=== PATIENT | male | born 1965 | race Caucasian/White ===

== ENCOUNTER 2016-09-28 09:29 | Inpatient (IN) | payer MEDICAID ==
[2016-09-28] VITALS (8 sets, daily range): BP systolic 96–126; BP diastolic 60–76
[~2016-09-28] VITALS: Ht 172.7 cm; Wt 50.3 kg
--- NOTE | 2016-09-28 09:29 | NUR ---
Patient was BIBA and taken to bed 02 via gurney per EMS.
--- NOTE | 2016-09-28 09:30 | NUR ---
CLOTHING CUT OFF PT---COVERED WITH WARM GOWN AND BLAKET--
[2016-09-28] MEDS ORDERED: NACL 0.9% 2,000 ML IV SCH (09:35)
--- NOTE | 2016-09-28 09:49 | NUR ---
Dr. Stone evaluating patient at bedside.
--- NOTE | 2016-09-28 09:50 | NUR ---
SEAN GILES INITIATED--HIGH SETTING
[2016-09-28] MEDS ORDERED: SODIUM BICARBONATE 8.4% 50 MEQ/50 ML VIAL INJ ONE (09:55)
[2016-09-28] MEDS ORDERED: SODIUM BICARBONATE 8.4% PFS 50 MEQ/50 ML SYR IVP ONE (09:59)
--- NOTE | 2016-09-28 10:04 | NUR ---
LAB at bedside.
--- NOTE | 2016-09-28 10:16 | NUR ---
Patient going to CT via [facility].
[2016-09-28] MEDS ORDERED: LEVOFLOXACIN 500 MG/D5W PREMIX 100 ML IV ONE (10:40)
[2016-09-28] MEDS ORDERED: NACL 0.9% 500 ML IV ONE (10:40)
--- NOTE | 2016-09-28 10:52 | NUR ---
Patient back from CT via [facility].
--- NOTE | 2016-09-28 11:00 | NUR ---
PT OPENING EYE SPONTANEOUSLY, MOVING ALL EXTREMITIES, ATTEMPTED TO SAY NAME BUT REMAINS NON VERBAL --NODS YES WHEN ASKED TO CONFIRM HIS NAME "VANI". SEAN GILES REAPPLIED. WILL CONTINUE TO MONITOR AND OBSERVE FOR CHANGES
[2016-09-28] MEDS ORDERED: cefTRIAXone 1,000 MG VIAL ONE (11:11)
[2016-09-28] MEDS ORDERED: POTASSIUM CHL 40 MEQ/ D5-1/2NS 1,000 ML IV ONE (11:15)
[2016-09-28] MEDS ORDERED: CALCIUM CHLORIDE 10% 100 MG/ML SYR IVP ONE (11:15)
--- NOTE | 2016-09-28 11:37 | NUR ---
RT at bedside to repeat ABG.
[2016-09-28] MEDS ORDERED: NACL 0.9% 1,000 ML IV SCH ×2 (12:32→12:50)
[2016-09-28] MEDS ORDERED: ONDANSETRON 4 MG/2 ML VIAL IVP PRN (12:35)
[2016-09-28] MEDS ORDERED: ACETAMINOPHEN 325 MG TAB PO PRN (12:35)
[2016-09-28] MEDS ORDERED: SODIUM BICARBONATE 8.4% 100 MEQ in NACL 0.9% 1,000 ML IV SCH (12:35)
--- NOTE | 2016-09-28 12:45 | NUR ---
C-SPINE PRECAUTIONS CLEARED BY MD--REMOVED BACKBOARD AND C-COLLAR DC'D
--- NOTE | 2016-09-28 13:05 | NUR ---
ADMITTED 51 YEAR OLD MALE FROM ER WITH A DIAGNOSIS OF HYPOKALEMIA, SEVERE ANEMIA, DEHYDRATION. PT IS AWAKE AND DROWSY BUT ABLE TO FOLLOW SIMPLE COMMANDS AND ANSWER SIMPLE QUESTIONS. PT IS SR IN THE MONITOR, AUSCULTATED RHONCHI LUNG SOUNDS, ACTIVE BOWEL SOUNDS AUSCULTATED, PT HAS HURST CATHETER IN PLACE DRAINING BY GRAVITY WITH CLEAR YELLOW URINE NOTED, PT HAS MULTIPLE ABRASIONS AND BRUISES, AND OPEN WOUNDS ON RIGHT GROIN AND CHAZ RECTAL AREA, PT HAD SMALL SOFT BOWEL MOVEMENT NOTED, CLEANED AND KEPT DRY, PT IS ABLE TO MOVE ALL EXTREMITIES BUT WITH GENERALIZED WEAKNESS NOTED. ORIENTED PT IN THE ROOM, KEPT SEAN HUGGER IN PLACE, SAFETY/FALL PRECAUTION ENFORCED, CALL LIGHT WITHIN REACH, WILL CONTINUE TO MONITOR.
--- NOTE | 2016-09-28 13:05 | NUR ---
TAKEN TO ICU, REPORT GIVEN TO IVAN BACA----
--- NOTE | 2016-09-28 13:15 | NUR ---
BLOOD TRANSFUSION STARTED.
--- NOTE | 2016-09-28 13:18 | NUR ---
Pt transferred to ICU via [facility] , REPORT GIVEN TO IVAN BACA---
--- NOTE | 2016-09-28 15:15 | NUR ---
BLOOD TRANSFUSION STARTED. Addendum: 09/28/16 at 1522 by Deandre Morris RN WRONG TIME.
--- NOTE | 2016-09-28 15:22 | NUR ---
DR. CALIXTO IS IN THE NURSE'S STATION.
[2016-09-28] MEDS: NYSTATIN CRE 100 MU/GM 15 GM TUBE TP SCH ×2 (15:43→20:49)
--- NOTE | 2016-09-28 16:00 | NUR ---
2ND UNIT OF BLOOD TRANSFUSION STARTED.
--- NOTE | 2016-09-28 16:21 | NUR ---
DR. LOCKETT IS IN THE NURSE'S STATION. NEW ORDERS RECEIVED, WILL CARRY OUT NEW ORDER.
--- NOTE | 2016-09-28 16:22 | NUR ---
PER DR. LOCKETT, NO NEED TO REPORT TROPONIN, HE STATED THAT HE IS AWARE OF PT'S TROPONIN.
[2016-09-28] MEDS ORDERED: HYDROmorphone 1 MG/ML AMP IVP PRN (16:25)
[2016-09-28] MEDS ORDERED: LORazepam 2 MG/ML VIAL IVP SCH (16:25)
[2016-09-28] MEDS ORDERED: MAG SULF 2000 MG/WATER PREMIX 100 ML IV ONE (16:45)
--- NOTE | 2016-09-28 17:10 | NUR ---
DR. ARREDONDO, RESIDENT DOCTOR AT BEDSIDE, TALKING TO PT.
--- NOTE | 2016-09-28 18:30 | NUR ---
CENTRAL LINE INSERTION PROCEDURE DONE.
[2016-09-28] MEDS ORDERED: LORazepam 2 MG/ML VIAL IVP PRN (19:00)
--- NOTE | 2016-09-28 19:23 | NUR ---
ENDORSED REPORT TO PHUONG CAVANAUGH FOR CONTINUITY OF CARE. PT IS STABLE AT THIS TIME.
--- NOTE | 2016-09-28 19:47 | NUR ---
IN BED SEDATED PER REPORT, BASELINE AOX2 BR UP O2 2L NC, NO SOB, NORMAL RR ON 3RD UNIT OF 4 FOR TRANSFUSION OK TO USE CENTRAL LINE PER DAY RN, SPOKE TO DR ARNULFO HURST IN IVS OK GETTING MAG WELL LABS IN AM US ROUTINE PENDING
[2016-09-28] MEDS ORDERED: POTASSIUM CHL 20 MEQ/D5-1/2NS 1,000 ML IV SCH (19:50)
[2016-09-28] MEDS ORDERED: CLINDAMYCIN 600 MG/4 ML VIAL ONE ×2 (20:12)
[2016-09-28] MEDS: CLINDAMYCIN 600 MG in DEXTROSE 5% 50 ML IV SCH (20:13)
--- NOTE | 2016-09-28 20:38 | NUR ---
ABG RESULTS READ TO DR CARDONA (ORDERED BY ARNULFO)
[2016-09-28] MEDS ORDERED: POTASSIUM CHL 20 MEQ/ 1/2 NS 1,000 ML IV SCH (23:25)
[2016-09-28] MEDS ORDERED: THIAMINE 200 MG/2 ML VIAL IM SCH (23:25)
[2016-09-28] MEDS ORDERED: THIAMINE 200 MG/2 ML VIAL IV SCH (23:25)
[2016-09-29] VITALS (16 sets, daily range): BP systolic 121–150; BP diastolic 63–92
[2016-09-29] MEDS: NACL 0.45% IV SCH ×4 (00:30→17:22)
[2016-09-29] MEDS: THIAMINE IV SCH ×4 (00:30→17:22)
[2016-09-29] MEDS: POTASSIUM CHLORIDE IV SCH ×4 (00:30→17:22)
--- NOTE | 2016-09-29 00:43 | NUR ---
DR ARREDONDO CALLED IN TO ORDER ivf: 20 meq kcl thiamine 100mg 1/2 ns 1000 ml
[2016-09-29] MEDS: CLINDAMYCIN 600 MG in DEXTROSE 5% 50 ML IV SCH ×2 (04:15→12:47)
--- NOTE | 2016-09-29 04:43 | NUR ---
NO DISTRESS BATH GIVEN STILL SLEEPY, BUT SAYS HE KNOW WHERE HE IS CENTRAL LINE OK, 4 UNITS GIVEN LEFT IV 20G TAKEN OUT HURST IN VS WNL NO NEW SKIN BREAKDOWN
--- NOTE | 2016-09-29 07:10 | NUR ---
K 2.6 ENDORSED TO ONCOMING RN , TRIED TO CALL [phone], NO ANSWER
--- NOTE | 2016-09-29 07:14 | NUR ---
DR CHE CALLED KEEP NPO EXCEPT MEDS CONSENT FOR EGD
--- NOTE | 2016-09-29 07:15 | NUR ---
PT ASLEEP IN BED, EASILY AROUSABLE TO VERBAL AND TACTILE STIMULI. NO SIGNS OF ACUTE DISTRESS. WITH O2 AT 2L/MIN VIA NC. BREATHING EVENLY AND UNLABORED. SKIN IS WARM AND DRY. OFFLOAD TO BONY PROMINENCE. AFEBRILE, NO EPISODE OF ANY NAUSEA OR VOMITING. NOTED HURST CATHETER WITH 150CC OF CLEAR YELLOW URINE. KEPT ON NPO ORDERED. NO C/O PAIN OR DISCOMFORT. ALL NEEDS ANTICIPATED. SAFETY PRECAUTIONS MAINTAINED. CALL LIGHT WITHIN REACH.
[2016-09-29] MEDS ORDERED: POTASSIUM CHLORIDE 20% 40 MEQ/15 ML UDC PO SCH (08:00)
--- NOTE | 2016-09-29 08:00 | NUR ---
PT WITH GOOD BED MOBILITY, ABLE TO TURN WITH MINIMAL ASSIST. KEPT CLEAN AND DRY. CONTINUE TO MONITOR.
[2016-09-29] MEDS: LEVOFLOXACIN 500 MG/D5W PREMIX 100 ML IV SCH (08:05)
[2016-09-29] MEDS: NYSTATIN CRE 100 MU/GM 15 GM TUBE TP SCH ×2 (08:05→20:23)
--- NOTE | 2016-09-29 08:10 | NUR ---
RECEIVED ORDER FROM OBTAIN ABG DR. ARREDONDO. NOTED AND CARRIED OUT.
--- NOTE | 2016-09-29 08:21 | NUR ---
PATIENT HAS BEEN SCREENED AND CATEGORIZED HIGH NUTRITION RISK. PATIENT WILL BE SEEN WITHIN 1-2 DAYS OF ADMISSION. 09/29/16-09/30/[address]
[2016-09-29] MEDS ORDERED: POTASSIUM CHLORIDE 20% 40 MEQ/15 ML UDC GT SCH (08:58)
--- NOTE | 2016-09-29 09:12 | NUR ---
NEW MED AND LAB ORDERS RECEIVED FROM DR. ARREDONDO. NOTED AND CARRIED OUT.
--- NOTE | 2016-09-29 09:15 | NUR ---
WAS SEEN BY WOUND CARE NURSE. CONTINUE TO MONITOR.
[2016-09-29] MEDS ORDERED: NACL 0.9% 600 ML IV ONE (10:40)
[2016-09-29] MEDS ORDERED: POTASSIUM PHOSPHATE 15 MM in NACL 0.9% 250 ML IV SCH (11:00)
--- NOTE | 2016-09-29 11:00 | NUR ---
WOUND CARE EVALUATION NOTES: REASON FOR EVALUATION: MULTIPLE SCABS/WOUNDS COMPLETE SKIN ASSESSMENT DONE ON THIS 51 Y/O HOMELESS MALE PATIENT TO [facility], WITH INITIAL DIAGNOSIS OF HYPOKALEMIA, SEVERE ANEMIA AND DEHYDRATION. PAST HISTORY INCLUDE CHRONIC ALCOHOL USE AND BACK INJURY. LABS INCLUDE WBC 29.2, H/H 10.9/32.5, GLUCOSE 98, ALBUMIN 2.1, PT/INR 14.8/1.6 AND PTT 35.3. CURRENT MEDS INCLUDE FLUCONAZOLE, CLINDAMYCIN, ATIVAN AND NORCO. PATIENT IS AWAKE, ORIENTED TO PERSON AND PLACE, BUT NOT TO DATE AND TIME. ABLE TO FOLLOW SIMPLE COMMANDS. RIGHT IJ CENTRAL LINE PATENT AND INTACT. URINE AND BOWEL INCONTINENT. SKIN WARM TO TOUCH WNL, TOENAILS WNL, NO EDEMA, WITH HAIR GROWTH AND +2 BILATERAL PEDAL PULSES. ABLE TO TURN SELF WITH NO ASSISTANCE. INITIAL PLAN OF CARE AND PRESSURE PREVENTIVE MEASURES DISCUSSED, ABLE TO VERBALIZE UNDERSTANDING. INTEGUMENTARY: PERIAREA, PERIRECTAL - INCONTINENT ASSOCIATED DERMATITIS RIGHT SIDE OF FACE - ECCHYMOSIS - PURPLE ABDOMEN - ECCHYMOSIS - PURPLE LEFT ARM - ECCHYMOSIS - PURPLE RECOMMENDATIONS: -CLEANSE PERIRECTAL TO PERIAREA WITH MILD SOAP AND WATER, PAT DRY, APPLY ANTIFUNGAL OINT BIDWC AND PRN WITH SOILING. LEAVE OPEN TO AIR -TURN AND REPOSITION PATIENT Q2H -ASSESS AND MONITOR SKIN CONDITION DURING POSITION CHANGE, PLEASE PAY PARTICULAR ATTENTION TO SACRALCOCCYX, ELBOWS AND HEELS -OFFLOAD BILATERAL HEELS BY PLACING PILLOWS UNDER CALVES AT ALL TIMES, UNLESS OTHERWISE CONTRAINDICATED. -KEEP SKIN CLEAN AND DRY AT ALL TIMES. RECOMMENDATIONS DISCUSSED WITH PRIMARY RN AND RESIDENT PHYSICIAN, DR ARREDONDO AND DR CHARLES NO FOLLOW UP NEEDED AT THIS TIME. PLEASE CONTACT [facility] FOR ANY CONCERNS, QUESTIONS AND CHANGES IN WOUND CONDITION.
--- NOTE | 2016-09-29 11:40 | NUR ---
DR CHE U AT BEDSIDE TO PERFORM PROCEDURE WITH PT. CONSENT OBTAINED, RISKS AND BENEFITS EXPLAINED.
[2016-09-29] MEDS: fentaNYL 0.05 MG/ML VIAL ONE ×2 (11:52→12:21)
[2016-09-29] MEDS: MIDAZOLAM 2 MG/2 ML VIAL ONE ×2 (11:52→12:20)
[2016-09-29] MEDS: diphenhydrAMINE 50 MG/ML VIAL ONE ×2 (11:52→12:20)
[2016-09-29] MEDS ORDERED: NYSTATIN CRE 100 MU/GM 15 GM TUBE TP PRN ×3 (11:55→16:15)
--- NOTE | 2016-09-29 11:55 | NUR ---
DR. CHINEDU Mojica STARTED PROCEDURE AT BEDSIDE WITH OR STAFF, TIMEOUT IN EFFECT. PT TOLERATING PROCEDURE WELL. CONTINUE TO MONITOR.
--- NOTE | 2016-09-29 12:05 | NUR ---
PT S/P EGD WITH BIOPSY, ASLEEP. NO SIGNS OF ACUTE DISTRESS. POST OP DIAGNOSIS PER DR CHINEDU Mojica, SEVERE EROSIVE ESOPHAGITIS. CONTINUE TO MONITOR.
[2016-09-29] MEDS: FLUCONAZOLE 200 MG/NS PREMIX 100 ML IV SCH (13:32)
--- NOTE | 2016-09-29 15:17 | NUR ---
CM NOTE PER [facility] PH# [phone] EXT [phone], REVIEWS SHOULD ONLY BE SENT TO [facility]. INITIAL REVIEW SENT TO [facility] FAX# [phone] PH# [phone]
--- NOTE | 2016-09-29 15:32 | NUR ---
LAB RESULTS FOR CBC AND BMP OBTAINED, REPORTED TO . CONTINUE TO MONITOR.
[2016-09-29] MEDS ORDERED: MAG SULF 2000 MG/WATER PREMIX 50 ML IV SCH (15:37)
--- NOTE | 2016-09-29 15:46 | NUR ---
NEW ORDERS RECEIVED FROM DR. ARREDONDO. MAY TRANSFER TO TELE AND ADMINISTER MAG RIDER 2GM X1. CALLED TELE CHARGE NURSE FOR AVAILABLE ROOM. Addendum: 09/29/16 at 1548 by Reinaldo Harden RN NEW ORDERS RECEIVED FROM DR. ARREDONDO. MAY TRANSFER TO TELE AND ADMINISTER MAG RIDER IV 2GM X1. CALLED TELE CHARGE NURSE FOR AVAILABLE ROOM.
--- NOTE | 2016-09-29 15:57 | NUR ---
PT ASLEEP, AROUSABLE TO TACTILE STIMULI. NO SIGNS OF ACUTE DISTRESS. OFFLOAD TO PRESSURE AREAS. FLACC 0. CONTINUE TO MONITOR.
--- NOTE | 2016-09-29 16:10 | NUR ---
PT ABLE TO TOLERATE ROOM AIR O2. SATURATION AT 96%. NO SIGNS OF ACUTE DISTRESS. CONTINUE TO MONITOR.
[2016-09-29] MEDS: metroNIDAZOLE 500 MG/NS PREMIX 100 ML IV SCH (17:27)
--- NOTE | 2016-09-29 17:27 | NUR ---
NEW MED ORDERS RECEIVED FROM DR. ARREDONDO. NOTED AND CARRIED OUT.
--- NOTE | 2016-09-29 17:55 | NUR ---
RECEIVED REPORT FROM PHUONG BELTRAN. PT TO FINISH EATING DINNER AND PT TO BE TRANSFERRED TO [facility].
--- NOTE | 2016-09-29 17:57 | NUR ---
CALLED REPORT AND ENDORSED TO ANN Cee RN, TO BE TRANSFERRED TO 108B TELE.
--- NOTE | 2016-09-29 18:30 | NUR ---
PT ALERT AND RESPONSIVE, NO SIGNS OF ACUTE DISTRESS. TRANSFERRED TO TELE 108B, RECEIVED BY ANN Pastor RN. FOR CONTINUITY OF CARE.
--- NOTE | 2016-09-29 18:30 | NUR ---
PT ARRIVED TO UNIT VIA GURNEY. PT IS AAOX2, PT ON ROOM AIR WITH NO S/S OF DISTRESS NOTED. IV TO LEFT AC #18, PATENT AND INTACT. RIGHT IJ TRIPLE LUMEN, PATENT AND INTACT. REDNESS TO PERINEAL AREA, RIGHT KNEE SCAB,A DN BILATERAL UPPER AND LOWER EXTREMITY BRUISING NOTED. NO N/V OR PAIN INDICATED. ALL SAFETY PRECAUTIONS IN PLACE, SIDE RAILX2, BED IN LOW POSITION, AND CALL LIGHT WITHIN REACH. WILL PERFORM FREQUENT ROUNDS.
--- NOTE | 2016-09-29 19:30 | NUR ---
ENDORSED CARE TO PHUONG MIRANDA. PT IN STABLE CONDITION.
--- NOTE | 2016-09-29 19:30 | NUR ---
RECEIVED REPORT FROM DAY RN AT BEDSIDE, PATIENT IS AAOX3, FORGETFUL AT TIMES. PATIENT IS ON ROOM AIR, NO SIGN OF DISTRESS OR SOB AT THIS TIME. IV TO RAC 18G PATENT AND INTACT, CENTRAL LINE TO THE RIGHT IJ X3 LUMEN, PATENT AND INTACT. NOTED PATIENT HAS REDNESS TO PERINEAL/GROIN AREA, A RIGHT KNEE ABRASION AND BRUISES TO BILATERAL UPPER AND LOWER EXTREMITIES. HURST PRESENT. DISCUSSED PLAN OF CARE WITH PATIENT , PATIENT VERBALIZED UNDERSTANDING, SAFETY MEASURES CHECKED, CALL LIGHT WITHIN REACH. WILL CONTINUE TO MONITOR.
[2016-09-29] MEDS: HYDROcodone/APAP 5/325 MG 1 TAB TAB PO PRN (20:24)
--- NOTE | 2016-09-29 20:28 | NUR ---
ADMINISTERED PM MEDS PER MD ORDER, PATIENT TOLERATED WELL, ADMINISTERED NORCO, PATIENT C/O BACK PAIN, WILL CONTINUE TO MONITOR.
[2016-09-29] MEDS ORDERED: POTASSIUM CHLORIDE 20% 40 MEQ/15 ML UDC GT ONE (21:00)
--- NOTE | 2016-09-29 22:15 | NUR ---
PATIENT RESTING IN BED, NO SOB OR SIGN OF DISTRESS AT THIS TIME, CALL LIGHT WITHIN REACH. WILL CONTINUE TO MONITOR.
[2016-09-30] VITALS: BP 115/72
--- NOTE | 2016-09-30 00:10 | NUR ---
VITAL SIGNS STABLE, NO SOB OR SIGN OF DISTRESS, PATIENT SLEEPING, EASILY AROUSABLE, CALL LIGHT WITHIN REACH. WILL CONTINUE TO MONITOR.
[2016-09-30] MEDS: metroNIDAZOLE 500 MG/NS PREMIX 100 ML IV SCH ×4 (00:23→17:23)
[2016-09-30] MEDS: THIAMINE IV SCH (02:06)
[2016-09-30] MEDS: POTASSIUM CHLORIDE IV SCH (02:06)
[2016-09-30] MEDS: NACL 0.45% IV SCH (02:06)
--- NOTE | 2016-09-30 02:15 | NUR ---
PATIENT SLEEPING, NO SOB OR SIGN OF DISTRESS AT THIS TIME, CALL LIGHT WITHIN REACH. WILL CONTINUE TO MONITOR
[2016-09-30 04:00] VITALS: BP 124/76
--- NOTE | 2016-09-30 04:18 | NUR ---
VITAL SIGNS STABLE, PATIENT RESTING IN BED, PROVIDED PATIENT SOME WATER, PATIENT DENIES PAIN AND NO COMPLAINTS AT THIS TIME, CALL LIGHT WITHIN REACH. WILL CONTINUE TO MONITOR.
--- NOTE | 2016-09-30 07:22 | NUR ---
ENDORSED PATIENT TO DAY RN AT BEDSIDE, PATIENT IN STABLE CONDITION.
--- NOTE | 2016-09-30 07:23 | NUR ---
PT ALERT AND ORIENTED X3. BREATHING EVENLY AND UNLABORED, NO SIGNS OF ACUTE DISTRESS. SKIN IS WARM AND DRY. NO SIGNS OF ANY BOWEL/BLADDER DISCOMFORT AT THIS TIME. HURST CATHETER IN PLACE WITH CLEAR YELLOW URINE AT 100ML. NO C/O ANY PAIN AT THIS TIME. ALL NEEDS ATTENDED, SAFETY PRECAUTIONS MAINTAINED. CALL LIGHT WITHIN REACH.
[2016-09-30 07:44] VITALS: BP 148/81
[2016-09-30] MEDS: LEVOFLOXACIN 500 MG/D5W PREMIX 100 ML IV SCH (08:35)
[2016-09-30] MEDS: NYSTATIN CRE 100 MU/GM 15 GM TUBE TP SCH ×2 (08:35→21:07)
[2016-09-30] MEDS ORDERED: POTASSIUM CHLORIDE 20% 40 MEQ/15 ML UDC PO SCH (09:25)
[2016-09-30] MEDS: POTASSIUM CHL 20 MEQ/ 1/2 NS 1,000 ML IV SCH ×2 (10:26→19:54)
[2016-09-30 12:00] VITALS: BP 139/79
--- NOTE | 2016-09-30 12:05 | NUR ---
CM NOTE CONCURRENT REVIEW SENT TO [facility] FAX# [phone] PH# [phone]. INITIAL AND CONCURRENT REVIEWS SENT TO [facility] TRACKING# [id number] FAX# [phone] PH# [phone] ATTN: OSCAR LOVETT [id number]
[2016-09-30] MEDS ORDERED: SODIUM PHOS / POTASSIUM PHOS 1 PKT PDR PO SCH ×2 (12:07→21:00)
[2016-09-30] MEDS ORDERED: MAG SULF 2000 MG/WATER PREMIX 50 ML IV SCH ×2 (12:30→15:45)
--- NOTE | 2016-09-30 13:03 | NUR ---
PT HAD PHYSICAL THERAPY, SEE PT NOTES FOR MORE INFO.
[2016-09-30] MEDS: FLUCONAZOLE 200 MG/NS PREMIX 100 ML IV SCH (13:53)
--- NOTE | 2016-09-30 14:26 | NUR ---
09/30/16 RD INITIAL ASSESSMENT COMPLETED PLEASE REFER TO NUTRITION ASSESSMENT UNDER CARE ACTIVITY FOR ESTIMATED NUTRITIONAL NEEDS. RD RECOMMENDATIONS: 1. CONTINUE FULL LIQUID DIET MEDICALLY NECESSARY PER MD --FULL LIQUID DIET COMES STANDARD WITH HEALTH SHAKES TID FOR ADDITIONAL 900 KCAL AND 27 GM PROTEIN. 2. ENCOURAGE INCREASED PO INTAKES. PT UNDERWEIGHT. 3. WHEN MEDICALLY APPROPRIATE CONSIDER ADVANCE DIET TOLERATED TO REGULAR 4. RD WILL F/U 2-3 DAYS; HIGH RISK. DELIA SPARROW RD
[2016-09-30] MEDS ORDERED: SUCRALFATE 1 GM TAB PO SCH (14:35)
[2016-09-30] MEDS ORDERED: PANTOPRAZOLE 40 MG TABEC PO SCH (14:36)
[2016-09-30] MEDS ORDERED: POTASSIUM PHOSPHATE 15 MM in NACL 0.9% 250 ML IV ONE (15:40)
[2016-09-30 16:00] VITALS: BP 145/85
--- NOTE | 2016-09-30 17:59 | NUR ---
NEW LAB ORDERS RECEIVED FROM DR. ARREDONDO. NOTED AND CARRIED OUT.
[2016-09-30] MEDS ORDERED: POTASSIUM PHOSPHATE 15 MM, MAGNESIUM SULFATE 50% 2,000 MG in NACL 0.9% 250 ML IV SCH (18:00)
--- NOTE | 2016-09-30 19:03 | NUR ---
PT ALERT AND RESPONSIVE, NO SIGNS OF ACUTE DISTRESS. ENDORSED TO ONCOMING MANAGER WELLNESS NURSE FOR CONTINUITY OF CARE.
--- NOTE | 2016-09-30 19:20 | NUR ---
RECEIVED REPORT FROM DAY RN AT BEDSIDE, PATIENT IS AAOX3 WITH OCCASIONAL CONFUSION. PATIENT IS LAYING IN BED ON ROOM AIR WITH NO SIGN OF SOB OR DISTRESS AT THIS TIME. PATIENT HAS CENTRAL LINE TO THE RIJ X 3 LUMEN, PATENT AND INTACT, AND IV TO RIGHT AC PATENT. HURST PRESENT. REDNESS TO SACRAL AREA FROM INCONTINENT DERMATITIS. DISCUSSED PLAN OF CARE WITH PATIENT, PATIENT VERBALIZED UNDERSTANDING, SAFETY MEASURES CHECKED, CALL LIGHT WITHIN REACH. WILL CONTINUE TO MONITOR.
[2016-09-30 20:00] VITALS: BP 141/94
--- NOTE | 2016-09-30 20:45 | NUR ---
DR MCKEON IN TO SEE PATIENT, WILL F/U WITH ORDERS.
[2016-09-30] MEDS: HYDROcodone/APAP 5/325 MG 1 TAB TAB PO PRN (21:07)
[2016-09-30] MEDS ORDERED: cefTRIAXone 1,000 MG VIAL ONE (21:15)
--- NOTE | 2016-09-30 21:15 | NUR ---
PM MEDS ADMINISTERED, PATIENT TOLERATED WELL, CALL LIGHT WITHIN REACH WILL CONTINUE TO MONITOR
[2016-10-01] VITALS (7 sets, daily range): BP systolic 128–152; BP diastolic 74–93
[2016-10-01] MEDS: metroNIDAZOLE 500 MG/NS PREMIX 100 ML IV SCH ×5 (00:31→23:14)
--- NOTE | 2016-10-01 00:42 | NUR ---
VITAL SIGNS STABLE, NO SOB OR SIGN OF DISTRESS, PATIENT SLEEPING COMFORTABLE IN BED, CALL LIGHT WITHIN REACH. WILL CONTINUE TO MONITOR.
--- NOTE | 2016-10-01 02:20 | NUR ---
PATIENT SLEEPING COMFORTABLE IN BED, NO SOB OR SIGN OF DISTRESS AT THIS TIME, CALL LIGHT WITHIN REACH. WILL CONTINUE TO MONITOR.
--- NOTE | 2016-10-01 04:16 | NUR ---
VITAL SIGNS STABLE, PATIENT SLEEPING, NO SOB OR SIGN OF DISTRESS, CALL LIGHT WITHIN REACH. WILL CONTINUE TO MONITOR.
[2016-10-01] MEDS: POTASSIUM CHL 20 MEQ/ 1/2 NS 1,000 ML IV SCH ×3 (05:36→23:15)
[2016-10-01] MEDS: PANTOPRAZOLE 40 MG TABEC PO SCH (05:48)
--- NOTE | 2016-10-01 07:00 | NUR ---
PER DR ARNULFO MD WOULD LIKE MAGNESIUM GIVEN BEFORE POTASSIUM, WILL ENDORSE TO ONCOMING NURSE.
--- NOTE | 2016-10-01 07:29 | NUR ---
ENDORSED PATIENT TO DAY RN AT BEDSIDE FOR CONTINUITY OF CARE. PATIENT IN STABLE CONDITION. DAY SHIFT RN AWARE MD WANTS ORDERED MAGNESIUM BEFORE THE POTASSIUM.
[2016-10-01] MEDS ORDERED: KCL 20 MEQ/WATER INJ PREMIX 200 ML IV SCH ×2 (07:30→12:30)
--- NOTE | 2016-10-01 07:30 | NUR ---
RECEIVED PT REPORT FROM THE CARE TRANSITION MGR NURSE AT BEDSIDE. PT IS IN STABLE CONDITION. HE IS ALERT AND ORIENTED. NOTED THE RIJ IN HIS R NECK, 3 LUMEN. PT IS GETTING KCL 20MEQ IN 1/2 NS AT 100ML/HR. NOTED THE IV IN R AC 20G SL. SCD'S ON. PT HAS A HURST CATH. YELLOW, CLEAR URINE IN HURST BAG. WILL BE BACK TO FURTHER ASSESS PT.
[2016-10-01] MEDS ORDERED: MAG SULF 2000 MG/WATER PREMIX 100 ML IV SCH (08:30)
[2016-10-01] MEDS: SUCRALFATE 1 GM TAB PO SCH (08:58)
[2016-10-01] MEDS ORDERED: POTASSIUM CHLORIDE 20% 40 MEQ/15 ML UDC PO SCH ×4 (09:00→14:00)
[2016-10-01] MEDS ORDERED: POTASSIUM CHLORIDE 10 MEQ TABER PO SCH ×2 (09:00→14:00)
[2016-10-01] MEDS: NYSTATIN CRE 100 MU/GM 15 GM TUBE TP SCH ×2 (09:00→21:00)
--- NOTE | 2016-10-01 09:00 | NUR ---
ADMINISTERED MORNING MEDS. PT TOLERATED WELL. NOTED THE REDNESS AROUND CHAZ AREA. NOTED THE SCAB IN R KNEE. HE ALSO HAS MULTIPLE BRUISES UPPER EXTREMITIES. V/S SIGNS WERE WITHIN NORMAL RANGE, BP SLIGHTLY ELEVATED. NO PAIN. ALL SAFETY MEASURES IN PLACE. WILL CONTINUE TO MONITOR PT.
--- NOTE | 2016-10-01 09:53 | NUR ---
CHECKED ON PT. PT HAS NO COMPLAINTS. MAG INFUSING NICELY. COLLECTED THE STOOL SAMPLE AND SENT TO LAB. WILL CONTINUE TO MONITOR PT.
--- NOTE | 2016-10-01 11:00 | NUR ---
PT IS SLEEPING. NO SIGNS OF DISTRESS. CALL LIGHT WITHIN REACH. WILL CONTINUE TO MONITOR PT.
[2016-10-01] MEDS: SODIUM PHOS / POTASSIUM PHOS 1 PKT PDR PO SCH ×2 (12:11→17:23)
--- NOTE | 2016-10-01 13:30 | NUR ---
PT RESTING, WATCHING TV. NO SIGNS OF DISTRESS. NO COMPLAINTS. WILL CONTINUE TO MONITOR PT.
--- NOTE | 2016-10-01 13:35 | NUR ---
CM NOTE CONCURRENT REVIEW SENT TO [facility] FAX# [phone] ATTN: SADE Carter PH# [phone] EXT [phone] AND TO [facility] FAX# [phone] PH# [phone] SACHA EXT 119
[2016-10-01] MEDS: FLUCONAZOLE 200 MG/NS PREMIX 100 ML IV SCH (14:42)
[2016-10-01] MEDS ORDERED: POTASSIUM CHLORIDE 10 MEQ TABER PO ONE (15:15)
--- NOTE | 2016-10-01 15:41 | NUR ---
D/C'D HURST CATH ORDERED. PT TOLERATED IT WELL. NO COMPLAINTS AT THIS TIME. WILL CONTINUE TO MONITOR. PT HAD A BM IN HIS BED. NOTED REDNESS IN THE CHAZ AREA FROM WIPING SO MUCH. WILL REQUEST KATARZYNA.
--- NOTE | 2016-10-01 16:19 | NUR ---
PHYSICAL THERAPY CO-SIGN The Physical Therapy Progress Notes documented by Day Care Aide have been reviewed. Reviewed/Co-Signed by: Nimo Ivan Documentation Done by:RIKY JOVEL PTA PROGRESS DOROTHY. Addendum: 10/02/16 at 1054 by Nimo Ivan PT Amended: Links added.
--- NOTE | 2016-10-01 16:30 | NUR ---
RADIOLOGY IS HERETO TAKE PT FOR CT CAP. TICKET TO RIDE READY. HL ALL IV'S. TOOK PT ON [facility].
[2016-10-01] MEDS ORDERED: Z-GUARD PASTE TP SCH (16:55)
--- NOTE | 2016-10-01 17:00 | NUR ---
PT HAD ANOTHER BM ACCIDENT ALL OVER THE FLOOR. HAD TO CALL EVS TO COME AND CLEAN AGAIN.
--- NOTE | 2016-10-01 19:08 | NUR ---
BROUGHT PT A NEW BEDPAN AND MORE WIPES. HE HAS BEEN HAVING LOOSE STOOLS. LOTS OF ACCIDENTS. HIS CHAZ AREA IS RAW FROM WIPING. ZGUARD ORDERED, IN CASSETTE. NEED FREQUENT APPLICATION. WILL CALL MD ABOUT IMMODIUM?
--- NOTE | 2016-10-01 19:30 | NUR ---
RECEIVED REPORT FROM DAY SHIFT NURSE. PATIENT IS AAOX4, DENIES PAIN AT THIS TIME, RESTING. ON ROOM AIR, NO S/S OF RESPI. DISTRESS/DISCOMFORT NOTED. NOTED A RIGHT IJ IN HIS RIGHT NECK, PATENT, INTACT AND INFUSING WELL. PLAN OF CARE DISCUSSED, VERBALIZED UNDERSTANDING. SAFETY MEASURES CHECKED, CALL LIGHT WITHIN REACH. WILL CONTINUE TO MONITOR. Addendum: 10/01/16 at 2231 by Neno Clayton RN PT MENTATION STATUS IS AAOX2-3, PT UNABLE TO STATE THE CORRECT MONTH AND DATE.
--- NOTE | 2016-10-01 19:42 | NUR ---
ENDORSED PT TO THE PLUG STITCHER AT BEDSIDE FOR CONTINUITY OF CARE. PT IS IN STABLE CONDITION. PT C/O PAIN. KATHERYN WILL F/U.
--- NOTE | 2016-10-01 21:10 | NUR ---
DUE MED GIVEN, EXPLAINED BENEFITS AND S/E, VERBALIZED UNDERSTANDING. IV SITE INFUSING WELL, PATENT AND INTACT.
[2016-10-01] MEDS: HYDROcodone/APAP 5/325 MG 1 TAB TAB PO PRN (23:14)
--- NOTE | 2016-10-01 23:14 | NUR ---
PT COMPLAINED OF PAIN, ADMINISTERED PAIN MED PER MD ORDERED. V/S CHECKED AND STABLE.
--- NOTE | 2016-10-02 01:24 | NUR ---
SLEEPING AT THIS TIME. SAFETY MEASURES CHECKED, CALL LIGHT WITHIN REACH.
[2016-10-02 04:00] VITALS: BP 126/70
--- NOTE | 2016-10-02 04:10 | NUR ---
V/S CHECKED AND STABLE. HAS NO COMPLAIN OF PAIN. NOT IN DISTRESS. CALL LIGHT WITHIN REACH.
[2016-10-02] MEDS: PANTOPRAZOLE 40 MG TABEC PO SCH (05:33)
[2016-10-02] MEDS: metroNIDAZOLE 500 MG/NS PREMIX 100 ML IV SCH ×3 (05:33→17:21)
--- NOTE | 2016-10-02 05:55 | NUR ---
PT SLEEPING BUT AROUSABLE BY HIS NAME. DUE MEDICATION ADMINISTERED, EXPLAINED BENEFITS AND S/E, VERBLAIZED UNDERSTANDING. BLOOD DRAWN THROUGH CENTRAL LINE. PT HAS NO SIGNS OF DISTRESS.
--- NOTE | 2016-10-02 07:13 | NUR ---
ENDORSED PT TO DAY SHIFT NURSE FOR CONTINUITY OF CARE. PT IS IN STABLE CONDITION. NO S/S OF RESPIRATORY DISTRESS/DISCOMFORT.
--- NOTE | 2016-10-02 07:15 | NUR ---
RECEIVED REPORT FROM PHUONG CAMPA. PATIENT IS AAOX4, RESTING IN BED. ON ROOM AIR, NO S/S OF RESPI. DISTRESS/DISCOMFORT NOTED. PT HAS A RIGHT IJ IN HIS RIGHT NECK 3 LUMEN, PATENT, INTACT AND INFUSING WELL. PLAN OF CARE WAS DISCUSSED, PT VERBALIZED UNDERSTANDING. SAFETY/FALL PRECAUTIONS IN PLACE, CALL LIGHT WITHIN REACH. WILL CONTINUE TO MONITOR.
[2016-10-02 08:00] VITALS: BP 141/88
[2016-10-02] MEDS: POTASSIUM CHLORIDE 20% 40 MEQ/15 ML UDC PO SCH ×3 (08:42→17:21)
[2016-10-02] MEDS: SPIRONOLACTONE 25 MG TAB PO SCH (08:43)
[2016-10-02] MEDS: SUCRALFATE 1 GM TAB PO SCH (08:43)
[2016-10-02] MEDS: SODIUM PHOS / POTASSIUM PHOS 1 PKT PDR PO SCH ×3 (08:47→17:22)
[2016-10-02] MEDS: NYSTATIN CRE 100 MU/GM 15 GM TUBE TP SCH ×2 (08:48→20:46)
--- NOTE | 2016-10-02 08:48 | NUR ---
DUE MEDICATIONS GIVEN. PT TOLERATED WELL. NO S/S OF RESPIRTORY DISTRESS OR DISCOMFORT NOTED. ALL NEEDS MET AT THIS TIME. CALL LIGHT WITHIN REACH. WILL CONTINUE TO MONITOR.
[2016-10-02] MEDS ORDERED: POTASSIUM CHLORIDE 20% 40 MEQ/15 ML UDC PO SCH (09:00)
[2016-10-02] MEDS ORDERED: MAG SULF 2000 MG/WATER PREMIX 100 ML IV SCH (10:43)
--- NOTE | 2016-10-02 11:37 | NUR ---
CM NOTE CONCURRENT REVIEW SENT TO [facility] FAX# [phone] PH# [phone] ATTN: OSCAR Carter EXT [phone] [facility] FAX# [phone] PH# [phone] SACHA EXT [phone]
--- NOTE | 2016-10-02 11:41 | NUR ---
COPY PREPARER AT BEDSIDE WORKING ON THE PT.
[2016-10-02 12:00] VITALS: BP 132/83
[2016-10-02] MEDS: FLUCONAZOLE 200 MG/NS PREMIX 100 ML IV SCH (12:54)
--- NOTE | 2016-10-02 13:41 | NUR ---
PT IS RESTING ON BED WATCHING TV, NO S/S OF RESPIRATORY DISTRESS OR DISCOMFORT NOTED, CALL LIGHT WITHIN REACH, WILL CONTINUE TO MONITOR.
--- NOTE | 2016-10-02 15:20 | NUR ---
PT IS RESTING ON BED WATCHING TV, NO S/S OF RESPIRATORY DISTRESS OR DISCOMFORT NOTED, ALL NEEDS MET AT THIS TIME, CALL LIGHT WITHIN REACH, WILL CONTINUE TO MONITOR.
[2016-10-02 16:00] VITALS: BP 139/81
--- NOTE | 2016-10-02 16:10 | NUR ---
SPOKE TO DR. ARREDONDO AND ASKED IF HE WANTS TO GIVE EXTRA POTASSIUM FOR PT, PER DR. ARREDONDO, THE SCHEDULED AND IVF WITH POTASSIUM IS ENOUGH FOR NOW.
--- NOTE | 2016-10-02 17:52 | NUR ---
ASSISTED PT TO THE RESTROOM AND BACK TO BED, PT TOLERATED AMBULATING WELL, NO S/S OF RESPIRATORY DISTRESS OR DISCOMFORT NOTED, CALL LIGHT WITHIN REACH, WILL CONTINUE TO MONITOR.
--- NOTE | 2016-10-02 19:01 | NUR ---
ENDORSED PT TO PHUONG [place]. FOR CONTINUITY OF CARE. PT IS STABLE AT THIS TIME.
--- NOTE | 2016-10-02 19:14 | NUR ---
RECEIVED PATIENT FROM IVAN/ JOSE RN FOR CONTINUITY OF CARE. PATIENT IS A&OX3, DISCUSSED PLAN OF CARE. SHIFT ASSESSMENT DONE, VS TAKEN, STABLE. NO S/S OF RESPIRATORY DISTRESS NOTED ON ROOM AIR. PATIENT STATES PAIN 8/10 IN LEG, WILL ADMINISTER PAIN MEDICATION PER MD ORDER. PT HAS RT IJ TRIPLE LUMEN, INFUSING FLUIDS WELL. PT HAS REDNESS TO CHAZ AREA NOTED, RT KNEE SCAB AND BRUISE TO LEFT ABDOMEN. URINAL AT BEDSIDE EMPTIED 100 ML CLEAR YELLOW URINE. PT REFUSED SCD'S AT THIS TIME. SAFETY/ FALL PRECAUTIONS ENFORCED. CALL LIGHT PLACED WITHIN REACH AND PATIENT ENCOURAGED TO USE FOR ASSISTANCE. WILL CONTINUE TO MONITOR.
[2016-10-02] MEDS: HYDROcodone/APAP 5/325 MG 1 TAB TAB PO PRN (19:35)
--- NOTE | 2016-10-02 19:35 | NUR ---
PATIENT C/O PAIN 03/05, MEDICATED PER MD ORDER. WILL CONTINUE TO MONITOR.
[2016-10-02 19:44] VITALS: BP 122/76
--- NOTE | 2016-10-02 20:45 | NUR ---
DUE MEDICATIONS ADMINISTERED, TOLERATED WELL. PATIENT AMBULATED TO RESTROOM, VOIDED. NOW BACK IN BED AND MADE COMFORTABLE. CALL LIGHT WITHIN REACH. WILL CONTINUE TO MONITOR.
--- NOTE | 2016-10-02 22:42 | NUR ---
PATIENT IS SLEEPING. NO DISTRESS OR DISCOMFORT NOTED. CALL LIGHT WITHIN REACH.
[2016-10-03] VITALS: BP 135/84
--- NOTE | 2016-10-03 00:06 | NUR ---
DUE MEDICATION ADMINISTERED. VS TAKEN, STABLE. PATIENT DENIES PAIN. EMPTIED URINAL 300 ML CLEAR YELLOW URINE NOTED. CALL LIGHT WITHIN REACH.
[2016-10-03] MEDS: metroNIDAZOLE 500 MG/NS PREMIX 100 ML IV SCH ×4 (00:07→18:09)
--- NOTE | 2016-10-03 02:01 | NUR ---
PT IS SLEEPING, NO S/S OF DISTRESS OR DISCOMFORT NOTED.
[2016-10-03 04:00] VITALS: BP 134/90
--- NOTE | 2016-10-03 04:05 | NUR ---
VS TAKEN, STABLE. PATIENT IS SLEEPING. NO S/S OF DISTRESS OR DISCOMFORT NOTED. EMPTIED 650 ML CLEAR YELLOW URINE FROM URINAL. WILL CONTINUE TO MONITOR.
[2016-10-03] MEDS: PANTOPRAZOLE 40 MG TABEC PO SCH (05:49)
--- NOTE | 2016-10-03 05:49 | NUR ---
DUE MEDICATIONS ADMINISTERED, TOLERATED WELL. NO S/S OF DISTRESS OR DISCOMFORT NOTED. WILL CONTINUE TO MONITOR.
--- NOTE | 2016-10-03 07:04 | NUR ---
ENDORSED PATIENT TO DAYSHIFT RN FOR CONTINUITY OF CARE, PATIENT IS IN STABLE CONDITION.
--- NOTE | 2016-10-03 07:05 | NUR ---
RECEIVED REPORT FROM [facility] [place]. PT IS RESTING ON BED, AAO X3, HAS RIGHT IJ CENTRAL LINE X3 LUMEN, PT HAS BRUISE ON LEFT SIDE OF ABDOMEN NO S/S OF RESPIRATORY DISTRESS OR DISCOMFORT NOTED. DISCUSSED PLAN OF CARE WITH PATIENT. ALL NEEDS ARE MET AT THIS TIME. CALL LIGHT WITHIN REACH, WILL CONTINUE TO MONITOR.
[2016-10-03 08:00] VITALS: BP 142/83
[2016-10-03] MEDS: SPIRONOLACTONE 25 MG TAB PO SCH (08:32)
[2016-10-03] MEDS: SUCRALFATE 1 GM TAB PO SCH (08:32)
[2016-10-03] MEDS: SODIUM PHOS / POTASSIUM PHOS 1 PKT PDR PO SCH ×3 (08:33→16:56)
[2016-10-03] MEDS: POTASSIUM CHLORIDE 20% 40 MEQ/15 ML UDC PO SCH ×3 (08:33→21:25)
[2016-10-03] MEDS: CALCIUM CARB 600 MG TAB PO SCH ×2 (08:40→21:25)
--- NOTE | 2016-10-03 08:52 | NUR ---
DUE MEDS GIVEN AT THIS TIME. PT TOLERATED WELL. CALL LIGHT WITHIN REACH. WILL CONTINUE TO MONITOR.
[2016-10-03] MEDS ORDERED: MAG SULF 2000 MG/WATER PREMIX 100 ML IV SCH (09:00)
--- NOTE | 2016-10-03 11:24 | NUR ---
DUE MEDS GIVEN. PT TOLERATED WELL. CALL LIGHT WITHIN REACH. WILL CONTINUE TO MONITOR.
--- NOTE | 2016-10-03 11:31 | NUR ---
SADE NOTE CONCURRENT REVIEW SENT TO [facility] FAX# [phone] PH# [phone] ATTN: SADE Carter EXT [id number] TRACKING# [id number] AND TO [facility] FAX# [phone] PH# [phone]
--- NOTE | 2016-10-03 12:16 | NUR ---
10/03/16 RD INITIAL ASSESSMENT COMPLETED PLEASE REFER TO NUTRITION ASSESSMENT UNDER CARE ACTIVITY FOR ESTIMATED NUTRITIONAL NEEDS. RD RECOMMENDATIONS: 1. CONTINUE REGULAR DIET TOLERATED PER MD 2. ENCOURAGE INCREASED PO INTAKES. PT UNDERWEIGHT. 3. RD TO ADD HEALTH SHAKES TID FOR ADDITIONAL 900 KCAL AND 27 GM PROTEIN DAILY TO AID IN WEIGHT GAIN 4. RD WILL F/U 3-5 DAYS; MODERATE RISK. DELIA SPARROW RD
[2016-10-03] MEDS: FLUCONAZOLE 200 MG/NS PREMIX 100 ML IV SCH (12:57)
--- NOTE | 2016-10-03 13:40 | NUR ---
PT IS RESTING ON BED WATCHING TV AT THIS TIME, NO S/S OF RESPIRATORY DISTRESS OR DISCOMFORT NOTED, CALL LIGHT WITHIN REACH, WILL CONTINUE TO MONITOR.
--- NOTE | 2016-10-03 15:50 | NUR ---
PT IS RESTING ON BED WATCHING TV, ALL NEEDS MET AT THIS TIME, CALL LIGHT WITHIN REACH, WILL CONTINUE TO MONITOR.
[2016-10-03] MEDS: POTASSIUM CHL 20 MEQ/ 1/2 NS 1,000 ML IV SCH (15:51)
[2016-10-03 16:00] VITALS: BP 143/86
--- NOTE | 2016-10-03 17:45 | NUR ---
DINNER SERVED, PT HAS GOOD APPETITE, ALL NEEDS MET AT THIS TIME, CALL LIGHT WITHIN REACH, WILL CONTINUE TO MONITOR.
--- NOTE | 2016-10-03 19:08 | NUR ---
ENDORSED PT TO PHUONG [place]. FOR CONTINUITY OF CARE. PT STABLE AT THIS TIME.
--- NOTE | 2016-10-03 19:25 | NUR ---
RECEIVED PATIENT FROM JOSE/ IVAN RN FOR CONTINUITY OF CARE. PATIENT IS A&OX3, DISCUSSED PLAN OF CARE. SHIFT ASSESSMENT DONE, VS TAKEN, STABLE. NO S/S OF RESPIRATORY DISTRESS NOTED ON ROOM AIR. PATIENT STATES GENERAL PAIN IN BODY, WILL ADMINISTER PAIN MEDICATION PER MD ORDER. PT HAS RT IJ TRIPLE LUMEN, INFUSING FLUIDS WELL. PT HAS REDNESS TO [place] AREA NOTED, RT KNEE SCAB AND BRUISE TO LEFT ABDOMEN. URINAL AT BEDSIDE. YELLOW URINE. PT REFUSED SCD'S, EDUCATED PT ON USE BUT STILL REFUSED. SAFETY/ FALL PRECAUTIONS ENFORCED. CALL LIGHT WITHIN REACH. WILL CONTINUE TO MONITOR.
[2016-10-03] MEDS: HYDROcodone/APAP 5/325 MG 1 TAB TAB PO PRN (19:43)
--- NOTE | 2016-10-03 19:43 | NUR ---
PT C/O BODY PAIN FROM BEING IN BED, ADMINISTERED NORCO. SPOKE WITH DR. MAHER ABOUT STRONGER PAIN MED FOR PATIENT. WILL FOLLOW OUT ORDERS WHEN RECEIVED.
[2016-10-03 20:00] VITALS: BP 141/78
[2016-10-03] MEDS ORDERED: MORPHINE SULFATE 2 MG/ML SYR IVP PRN (20:35)
--- NOTE | 2016-10-03 21:25 | NUR ---
DUE MEDICATIONS ADMINISTERED, TOLERATED WELL. CHANGED CENTRAL LINE DRESSING, PT TOLERATED WELL. CALL LIGHT WITHIN REACH.
[2016-10-04] VITALS: BP 137/72
[2016-10-04] MEDS: metroNIDAZOLE 500 MG/NS PREMIX 100 ML IV SCH ×2 (00:13→05:45)
--- NOTE | 2016-10-04 00:13 | NUR ---
DUE MEDICATION ADMINISTERED. VS TAKEN, STABLE. EMPTIED URINAL, 300 ML CLEAR YELLOW URINE. PT IS SLEEPING NOW, NO S/S OF DISTRESS OR DISCOMFORT NOTED. WILL CONTINUE TO MONITOR.
--- NOTE | 2016-10-04 02:02 | NUR ---
PT IS SLEEPING. NO S/S OF DISTRESS OR DISCOMFORT NOTED. WILL CONTINUE TO MONITOR.
--- NOTE | 2016-10-04 04:06 | NUR ---
PT IS SLEEPING. EMPTIED 750 ML CLEAR YELLOW URINE FROM URINAL.
[2016-10-04] MEDS: PANTOPRAZOLE 40 MG TABEC PO SCH (05:45)
--- NOTE | 2016-10-04 05:45 | NUR ---
DUE ANTIBIOTICS ADMINISTERED. DUE MEDS GIVEN, PATIENT TOLERATED WELL. PATIENT IS NOW SLEEPING. WILL CONTINUE TO MONITOR.
--- NOTE | 2016-10-04 07:16 | NUR ---
ENDORSED PATIENT TO DAYSHIFT NEWSPAPER REPORTER FOR CONTINUITY OF CARE, PATIENT IS IN STABLE CONDITION.
--- NOTE | 2016-10-04 07:16 | NUR ---
ASSUMED CONTINUITY OF CARE. NO SIGNS AND SYMPTOMS OF ACUTE DISTRESS NOTICED. INITIAL ASSESSMENT DONE. RE-ORIENTED TO EVENTS AND SURROUNDINGS. KEEP COMFORTABLE ON BED. EXPLAINED DIAGNOSIS, PLAN OF CARE, PAIN MANAGEMENT TEACHING, USE OF CALL LIGHT/BED/TV/BATHROOM. VERBALIZED UNDERSTANDING. FALL PRECAUTION APPLIED. CALL LIGHT WITHIN REACH.
[2016-10-04 08:00] VITALS: BP 144/85
--- NOTE | 2016-10-04 08:50 | NUR ---
ALFREDO RED CAME SEEN PT., INFORMED OF PT. MAG LEVEL 1.3.
[2016-10-04] MEDS: SODIUM PHOS / POTASSIUM PHOS 1 PKT PDR PO SCH ×3 (08:56→16:29)
[2016-10-04] MEDS: POTASSIUM CHLORIDE 20% 40 MEQ/15 ML UDC PO SCH (08:56)
[2016-10-04] MEDS: SUCRALFATE 1 GM TAB PO SCH (08:57)
[2016-10-04] MEDS: SPIRONOLACTONE 25 MG TAB PO SCH (08:57)
[2016-10-04] MEDS: CALCIUM CARB 600 MG TAB PO SCH ×2 (08:57→21:17)
[2016-10-04] MEDS ORDERED: MAG SULF 2000 MG/WATER PREMIX 100 ML IV SCH (09:40)
--- NOTE | 2016-10-04 10:08 | NUR ---
Patient's Plan of Care was discussed and reviewed with SECURITY INTERN: ARETHA
[2016-10-04 12:00] VITALS: BP 144/80
--- NOTE | 2016-10-04 12:00 | NUR ---
DR. LOCKETT CAME, CHECKED PT. CHART, SEEN PT.. NO ORDER RECEIVED.
--- NOTE | 2016-10-04 14:22 | NUR ---
WENT TO BATHROOM WITHOUT ASSISTANCE. TOLERATED WELL. HAD STEADY GAIT AND BALANCE. ASKED TO CALL NURSE IF NEEDS HELP. VERBALIZED UNDERSTANDING. CALL LIGHT WITHIN REACH.
--- NOTE | 2016-10-04 16:05 | NUR ---
DR. FERRARI CAME, CHECKED PT. CHART AND SEEN PT..
[2016-10-04] MEDS: POTASSIUM CHL 20 MEQ/ 1/2 NS 1,000 ML IV SCH (18:10)
--- NOTE | 2016-10-04 19:09 | NUR ---
BEDSIDE REPORT GIVEN TO RUBEN DENIS -PHUONG. IVF INFUSING WELL. IN STABLE CONDITION.
--- NOTE | 2016-10-04 19:30 | NUR ---
RECEIVED REPORT FROM DAY RN AT BEDSIDE, PATIENT IS AAOX4 RESTING IN BED, PATIENT IS ON ROOM AIR, NO SOB OR SIGN OF DISTRESS AT THIS TIME, BRUISING NOTED TO SKIN, AND SCAB TO RIGHT KNEE IS INTACT, PATIENT C/O BACK PAIN, WILL ADMINISTER PAIN MEDS PER MD ORDER, PATIENT HAS CENTRAL LINE TO RIJ X3 LUMEN, PATENT AND INTACT. DISCUSSED PLAN OF CARE WITH PATIENT, PATIENT VERBALIZED UNDERSTANDING, SAFETY MEASURES CHECKED, CALL LIGHT WITHIN REACH. WILL CONTINUE TO MONITOR.
[2016-10-04] MEDS: FLUCONAZOLE 200 MG/NS PREMIX 100 ML IV SCH (21:16)
[2016-10-04] MEDS: HYDROcodone/APAP 5/325 MG 1 TAB TAB PO PRN (21:17)
--- NOTE | 2016-10-04 21:43 | NUR ---
PM MEDS ADMINISTERED, PATIENT TOLERATED WELL, CALL LIGHT WITHIN REACH. WILL CONTINUE TO MONITOR.
--- NOTE | 2016-10-04 22:15 | NUR ---
PATIENT SLEEPING, NO SOB OR SIGN OF DISTRESS AT THIS TIME, CALL LIGHT WITHIN REACH. WILL CONTINUE TO MONITOR.
[2016-10-05] VITALS: BP 138/79
--- NOTE | 2016-10-05 00:56 | NUR ---
PATIENT SLEEPING, NO SIGN OF DISTRESS, VITAL SIGNS STABLE, CALL LIGHT WITHIN REACH. WILL CONTINUE TO MONITOR.
--- NOTE | 2016-10-05 03:25 | NUR ---
PATIENT SLEEPING, NO SOB OR SIGN OF DISTRESS AT THIS TIME, CALL LIGHT WITHIN REACH. WILL CONTINUE TO MONITOR.
--- NOTE | 2016-10-05 06:35 | NUR ---
PATIENT SLEEPING, NO SOB OR SIGN OF DISTRESS, CALL LIGHT WITHIN REACH. WILL CONTINUE TO MONITOR.
[2016-10-05] MEDS: PANTOPRAZOLE 40 MG TABEC PO SCH (06:53)
--- NOTE | 2016-10-05 07:10 | NUR ---
ASSUMED CONTINUITY OF CARE. NO SIGNS AND SYMPTOMS OF ACUTE DISTRESS NOTED. INITIAL ASSESSMENT DONE. RE-ORIENTED TO EVENTS AND SURROUNDINGS. HOB ELEVATED. EXPLAINED DIAGNOSIS, PLAN OF CARE, PAIN MANAGEMENT TEACHING, USE OF CALL LIGHT/BED/TV/BATHROOM. VERBALIZED UNDERSTANDING. FALL PRECAUTION APPLIED. CALL LIGHT WITHIN REACH.
--- NOTE | 2016-10-05 07:11 | NUR ---
ENDORSED REPORT TO DAY DRUG ABUSE SOCIAL WORKER, PATIENT IN STABLE CONDITION.
--- NOTE | 2016-10-05 07:41 | NUR ---
Patient's Plan of Care was discussed and reviewed with BARREL DRILLER: ARETHA
[2016-10-05 08:00] VITALS: BP 140/89
[2016-10-05] MEDS ORDERED: MAG SULF 2000 MG/WATER PREMIX 50 ML IV SCH (08:30)
[2016-10-05] MEDS: SODIUM PHOS / POTASSIUM PHOS 1 PKT PDR PO SCH ×3 (08:54→16:41)
[2016-10-05] MEDS: SUCRALFATE 1 GM TAB PO SCH (08:57)
[2016-10-05] MEDS: CALCIUM CARB 600 MG TAB PO SCH ×2 (08:57→20:05)
[2016-10-05] MEDS: SPIRONOLACTONE 25 MG TAB PO SCH (08:58)
--- NOTE | 2016-10-05 11:00 | NUR ---
WATCHING TV AT THIS TIME. NO C/O PAIN. NO SOB, NOTED. CALL LIGHT WITHIN REACH.
[2016-10-05 12:00] VITALS: BP 121/81
[2016-10-05] MEDS: POTASSIUM CHL 20 MEQ/ 1/2 NS 1,000 ML IV SCH (15:05)
--- NOTE | 2016-10-05 15:17 | NUR ---
SLEEPING IN COMFORTABLE POSITION. NO SOB, NOTED. KEEP FREE FROM FALL. CALL LIGHT WITHIN REACH.
[2016-10-05] MEDS: FLUCONAZOLE 200 MG/NS PREMIX 100 ML IV SCH (18:13)
--- NOTE | 2016-10-05 19:13 | NUR ---
BEDSIDE REPORT GIVEN TO RUBEN DENIS -PHUONG. IVF INFUSING WELL. IN STABLE CONDITION.
--- NOTE | 2016-10-05 19:30 | NUR ---
RECEIVED REPORT FROM DAY TRUCKMAN, PATIENT AWAKE ALERT SITTING UP IN BED WATCHING TV, PATIENT ON ROOM AIR, NO SOB OR SIGN OF DISTRESS AT THIS TIME, NOTED CENTRAL LINE TO RIGHT IJ X3 LUMEN, PATENT AND INTACT, ASYMPTOMATIC, PATIENT DENIES PAIN AT THIS TIME, DISCUSSED PLAN OF CARE WITH PATIENT, PATIENT VERBALIZED UNDERSTANDING, CALL LIGHT WITHIN REACH. WILL CONTINUE TO MONITOR.
[2016-10-05 20:00] VITALS: BP 153/88
[2016-10-05] MEDS: HYDROcodone/APAP 5/325 MG 1 TAB TAB PO PRN (20:06)
--- NOTE | 2016-10-05 20:19 | NUR ---
PM MEDS ADMINISTERED, PATIENT TOLERATED WELL, CALL LIGHT WITHIN REACH. WILL CONTINUE TO MONITOR.
--- NOTE | 2016-10-05 23:05 | NUR ---
PATIENT SLEEPING, NO SOB OR SIGN OF DISTRESS AT THIS TIME, CALL LIGHT WITHIN REACH. WILL CONTINUE TO MONITOR.
--- NOTE | 2016-10-06 00:59 | NUR ---
PATIENT SLEEPING, NO SOB OR SIGN OF DISTRESS AT THIS TIME, CALL LIGHT WITHIN REACH. WILL CONTINUE TO MONITOR.
--- NOTE | 2016-10-06 01:31 | NUR ---
PATIENT SLEEPING, NO SOB OR SIGN OF DISTRESS AT THIS TIME, CALL LIGHT WITHIN REACH. WILL CONTINUE TO MONITOR.
[2016-10-06 04:00] VITALS: BP 144/88
--- NOTE | 2016-10-06 04:19 | NUR ---
PATIENT SLEEPING, NO SOB OR SIGN OF DISTRESS, VITAL SIGNS STABLE, CALL LIGHT WITHIN REACH. WILL CONTINUE TO MONITOR
[2016-10-06] MEDS: POTASSIUM CHL 20 MEQ/ 1/2 NS 1,000 ML IV SCH (04:44)
--- NOTE | 2016-10-06 06:30 | NUR ---
PATIENT SLEEPING, NO SOB OR SIGN OF DISTRESS, CALL LIGHT WITHIN REACH, WILL CONTINUE TO MONITOR.
[2016-10-06] MEDS: PANTOPRAZOLE 40 MG TABEC PO SCH (06:40)
--- NOTE | 2016-10-06 07:14 | NUR ---
ENDORSED REPORT TO DAYSHIFT RN AT BEDSIDE, PATIENT IN STABLE CONDITION
--- NOTE | 2016-10-06 07:15 | NUR ---
RECEIVED REPORT FROM PHUONG MIRANDA. PT IS SLEEPING BUT EASILY AWAKEN, AAO X4, RIGHT IJ WITH X3 LUMEN PATENT AND INTACT INFUSING FLUID WELL, MULTIPLE BRUISES AND SCAB NOTED. INITIAL ASSESSMENT DONE, NO S/S OF RESPIRATORY DISTRESS OR DISCOMFORT NOTED, SAFETY/FALL PRECAUTION ENFORCED, CALL LIGHT WITHIN REACH, WILL CONTINUE TO MONITOR.
[2016-10-06 08:00] VITALS: BP 144/84
[2016-10-06] MEDS: SUCRALFATE 1 GM TAB PO SCH (08:07)
[2016-10-06] MEDS: CALCIUM CARB 600 MG TAB PO SCH (08:07)
[2016-10-06] MEDS: SODIUM PHOS / POTASSIUM PHOS 1 PKT PDR PO SCH ×2 (08:08→11:31)
[2016-10-06] MEDS: SPIRONOLACTONE 25 MG TAB PO SCH (08:08)
--- NOTE | 2016-10-06 08:09 | NUR ---
DUE MEDS GIVEN, PT TOLERATED WELL, CALL LIGHT WITHIN REACH, WILL CONTINUE TO MONITOR.
[2016-10-06] MEDS ORDERED: MAG SULF 2000 MG/WATER PREMIX 100 ML IV SCH (09:00)
--- NOTE | 2016-10-06 11:20 | NUR ---
PT IS AMBULATING AROUND THE UNIT, TOLERATING WELL, WILL CONTINUE TO MONITOR.
[2016-10-06] MEDS ORDERED: AUGMENTIN 500 M1 TAB PO (13:32)
[2016-10-06] MEDS ORDERED: MULTI-VITAMINS1 TAB PO (13:33)
[2016-10-06] MEDS ORDERED: OMEPRAZOLE20 M3 PO (13:35)
[2016-10-06] MEDS ORDERED: CARAFATE1 GM PO (13:37)
[2016-10-06] MEDS ORDERED: ALDACTONE25 MG PO (13:38)
--- NOTE | 2016-10-06 14:38 | NUR ---
SADE NOTE CONCURRENT REVIEW SENT TO [facility] FAX# [phone] PH# [phone] ATTN: SADE Carter EXT [id number] AND TO [facility] FAX# [phone] PH# [phone] [facility] EXT [id number]
--- NOTE | 2016-10-06 15:15 | NUR ---
DISCHARGE INSTRUCTIONS AND PRESCRIPTION GIVEN, PT VERBALIZED UNDERSTANDING, REMOVED ID WRISTBAND AND RIGHT IJ PICC LINE, NO BLEEDING NOTED. ALL QUESTIONS ANSWERED, BUS PASS GIVEN, PT LEFT THE UNIT AMBULATING, PT STABLE UPON DISCHARGE.
--- NOTE | 2016-10-06 15:38 | NUR ---
PHYSICAL THERAPY CO-SIGN The Physical Therapy Progress Notes documented by Detective Sergeant have been reviewed. I CONCUR W/FIRE SUPPORT SPECIALIST NOTE; CONT PER TX PLAN Reviewed/Co-Signed by: Mariann Richard PT Documentation Done by: ALVARADO CARPENTER FIRE SUPPORT SPECIALIST Addendum: 10/06/16 at 1538 by Mariann Richard PT Amended: Links added.
== END 2016-10-06 15:15 | disposition home or self-care (01) | DRG 720 ==
LOC: MED 10:06 → MIC 11:49 → MTU 09-29 18:30
PROVIDERS: ADMIT Student in an Organized Health Care Education/Training Program; ATTEND Student in an Organized Health Care Education/Training Program
PROC: 30233N1 Transfusion of Nonautologous Red Blood Cells into Peripheral Vein, Percutaneous Approach (ICD-10-PCS; principal; 2016-09-28)
PROC: 02HV33Z Insertion of Infusion Device into Superior Vena Cava, Percutaneous Approach (ICD-10-PCS; 2016-09-28)
PROC: 3E04329 Introduction of Other Anti-infective into Central Vein, Percutaneous Approach (ICD-10-PCS; 2016-09-28)
PROC: B548ZZA Ultrasonography of Superior Vena Cava, Guidance (ICD-10-PCS; 2016-09-28)
PROC: 0DB58ZX Excision of Esophagus, Via Natural or Artificial Opening Endoscopic, Diagnostic (ICD-10-PCS; 2016-09-30)
DX: A41.9 Sepsis, unspecified organism (principal); N17.0 Acute kidney failure with tubular necrosis; I21.4 Non-ST elevation (NSTEMI) myocardial infarction; J69.0 Pneumonitis due to inhalation of food and vomit; E87.2 Acidosis; E43 Unspecified severe protein-calorie malnutrition; T68.XXXA Hypothermia, initial encounter; D62 Acute posthemorrhagic anemia; K70.10 Alcoholic hepatitis without ascites; M62.82 Rhabdomyolysis; E83.42 Hypomagnesemia; K70.0 Alcoholic fatty liver; E87.6 Hypokalemia; E86.0 Dehydration; Z68.1 Body mass index [BMI] 19.9 or less, adult; J44.9 Chronic obstructive pulmonary disease, unspecified; E83.39 Other disorders of phosphorus metabolism; K20.9 Esophagitis, unspecified; K29.80 Duodenitis without bleeding; K56.7 Ileus, unspecified; N20.0 Calculus of kidney; R19.7 Diarrhea, unspecified; S80.211A Abrasion, right knee, initial encounter; S00.81XA Abrasion of other part of head, initial encounter; I25.10 Atherosclerotic heart disease of native coronary artery without angina pectoris; E11.9 Type 2 diabetes mellitus without complications; D72.823 Leukemoid reaction; F10.10 Alcohol abuse, uncomplicated; Z91.81 History of falling; Z72.0 Tobacco use; Z59.0 Homelessness